=== PATIENT | female | born 1950 | race Caucasian/White ===

== ENCOUNTER → 2017-05-06 | Outpatient (CLI) | payer MEDICARE, MEDICAID ==
--- NOTE | 2017-05-06 23:27 | RADIOLOGY REPORT PS360 ---
MRI-L-SPINE W/O, MRI-3D RENDERING/MYELOGRAM Ordering Physician: TYRONE YAO Patient Age: 67 years: Female HISTORY: THORACIC BACK PAIN, LOW BACK PAIN. Lumbar pain. One month. Duct at the object in heard pop in back. Now with left leg pain and numbness and tingling. Left radiculopathy. COMPARISON is made to previous MRI 2012 TECHNIQUE: FINDINGS L5/S1. Prominent degenerative disc space narrowing. Mild with spondylosis and disc bulge . Disc osteophyte slightly indenting anterior thecal sac any encroach upon the neural foramen bilaterally. Right greater than left. Moderate facet hypertrophy. L4/5. Diffuse disc bulge most evident towards the foramen, right greater than left... Prominent facet and posterior element hypertrophy.... Bilateral foraminal encroachment right greater than left. Moderately pronounced Spinal stenosis L3/4. Disc intact. Moderate facet arthropathy, hypertrophy L2/3. Disc intact mild facet arthropathy L1/2 disc intact T12/L1 disc intact. T11/12. Mild disc space narrowing scant disc bulge. 3-D MR myelogram images demonstrate tapering the spinal canal at L4/5 reflecting the generous spinal stenosis or. Slight progression of findings at this level since 2012 Incidental renal cysts bilaterally similar to previous study. IMPRESSION: ------- L4/5. Fairly pronounced central canal Spinal stenosis. Foraminal disc bulge with prominent posterior element/facet hypertrophy. Bilateral foraminal encroachment. Slightly more evident the left.. Overall Slight progression findings here since 2013 L5/S1. Degenerative disc space narrowing. Mild spondylotic disc bulge most evident towards the foramen. Facet hypertrophy. Moderate bilateral recess and foraminal encroachment
--- NOTE | 2017-05-08 08:26 | RADIOLOGY REPORT PS360 ---
MRI-T-SPINE W/O Ordering Physician: TYRONE YAO Patient Age: 67 years: Female HISTORY: THORACIC BACK PAIN, LOW BACK PAIN TECHNIQUE: Sagittal T1-T2 STIR axial T1-T2 imaging on 1.5 T MR. FINDINGS Compression fractures at T7 and T5 T5 vertebra: favor old wedge compression fracture. ~ 60% loss of height anteriorly from this wedging. The compression mainly involving inferior end plate at this level with inferior endplate concavity centrally yielding the most pronounced decreased height of the vertebra centrally. There is also subtle posterior offset scant retropulsion most evident at inferior T5 vertebra, which only subtle indents the spinal canal posteriorly at the T5/T6 level posteriorly. This yields Very slight 2 mm overhang of inferior margin T5 vs T6 indenting the thecal sac at this level.. The T7 vertebra compression fracture appears recent in nature-with residual bone edema signal throughout the majority of this vertebral body. There is superior endplate compression with 25-30% loss of height... Only very scant less than 2 mm posterior position of the superior/ posterior corner of T7 versus T7. This very slightly indents the thecal sac sac.. There may be some subtle anterior position of T6 on T7 as well. . At T7 vertebra question, Suspect associated hairline fracture through the junction of vertebra & pedicles bilaterally associated with this compression fracture injury-. These lines Vaguely seen sagittal image 10 & 4. No distraction. T 7/8. Disc space narrowing. Scant spondylosis mild posterior ridging slightly indents thecal sac T8-T9:. Disc intact borderline narrowing. T9-T10. Disc intact. Minimal vertical ridging just left of midline at posterior T9, just above the disc level very slightly indents thecal sac to left of midline. Also minor facet hypertrophy to slightly more evident to the right than left T10-11. Scant disc bulge barely indents the spinal canal. Mild facet hypertrophy most evident to the right slightly indenting posterior thecal sac. T11/12. Perhaps scant disc bulge. Negligible. Thoracic Thoracic Cord appears normal in caliber and signal. note: This study was dictated with a voice-recognition system. There may be typographical error is related to such. If they are significant please notify us for corrections IMPRESSION 1.... T7 recent compression fracture. Residual bone edema throughout T7 vertebra suggest recent compression fracture.. Superior endplate compression with 25-30% percent loss of height. Additional Details in text 2.... Old appearing pronounced wedge compression fracture at T5. Up to 60% loss of height centrally and anteriorly. 3. Changes at these levels and other minor degenerative disc changes yield only minor indentation upon the anterior thecal sac at otherwise generous caliber thoracic spinal canal.
== END ==
LOC: RAD 13:08
DX: M54.6 Pain in thoracic spine (principal); M54.5 Low back pain